=== PATIENT | female | born 1955 | race Caucasian/White ===

== ENCOUNTER → 2016-09-18 | Outpatient (CLI) | payer MEDICARE, MEDICAID ==
[~2016-09-18] MED LIST: ASPIRIN 81MG TA81 MG PO; BUSPAR 5MG TAB5 MG PO; COMBIGAN 0.2%-010 ML OP; GARLIC OIL NA1000 MG PO; KLONOPIN 0.5MG0.5 MG; LEVAQUIN500 MG PO; LIPITOR10 MG; LISINOPRIL 5MG T5 MG PO; LISINOPRIL2.5 M1 PO; LISINOPRIL2.5 MG PO; METFORMIN1000 MG PO; PHENERGAN 25MG.25 M1 PO; PRILOSEC20 MG; SIMVASTATIN20 MG PO
--- NOTE | 2016-09-25 10:49 | RADIOLOGY REPORT PS360 ---
DIG MAMM-DX RAMILA W/CAD COMPARISON: 06/20 and 01/30/2016 INDICATION: Follow-up abnormal mammogram ORDERING PHYSICIAN: Preet Rasheed MD PATIENT AGE: 61 years TECHNIQUE: Standard images obtained along with spot compression views of both breasts FINDINGS: Average fibroglandular tissue once again noted. No malignant appearing mass or malignant appearing microcalcification is evident. Scattered areas of asymmetric density once again noted in both breasts. No malignant appearing mass or malignant appearing microcalcification is evident. Areas of asymmetric density do not appear to compress out as fibroglandular tissue. There are few benign-appearing nodules some which are calcified. There are benign-appearing calcifications bilaterally. IMPRESSION: No change, no evidence of malignancy. Scattered areas of asymmetric density once again noted consistent with fibroglandular tissue. BI-RADS CATEGORY: 2_Benign RECOMMENDED FOLLOWUP: Resume screening mammogram January 2017 (A letter has been sent to the patient regarding results of the study.)
== END ==
LOC: RAD 12:38
DX: R92.8 Other abnormal and inconclusive findings on diagnostic imaging of breast (principal)
CPT/HCPCS: G0204

== ENCOUNTER → 2016-11-17 | Outpatient (CLI) | payer MEDICARE, MEDICAID ==
[2016-11-17 14:47] LABS: BUN 10 mg/dL (7-18)
[2016-11-17 15:01] LABS: GFR (ESTIMATED) 86 ML/MIN (59-)
== END ==
LOC: LAB 12:06
PROVIDERS: Internal Medicine Adolescent Medicine
DX: E11.9 Type 2 diabetes mellitus without complications (principal); E55.9 Vitamin D deficiency, unspecified